=== PATIENT | female | born 1960 | race Caucasian/White ===

== ENCOUNTER 2021-01-04 12:56 | Emergency (ER) | payer MEDICAID, OTHER ==
[~2021-01-04] VITALS: Ht 157.5 cm; Wt 137.0 kg
[~2021-01-04 12:56] MED LIST: IBUP-2030; SIMV40TA2
[2021-01-04] MEDS ORDERED: ONDANSETRON HCL 4MG/2ML INJ IV STA (13:18)
[2021-01-04] MEDS ORDERED: ACETAMINOPHEN 325MG TABLET PO STA (13:18)
[2021-01-04] MEDS ORDERED: KETOROLAC 30MG/ML VIAL IV STA (13:18)
[2021-01-04] MEDS ORDERED: SODIUM CHLORIDE 0.9% 1,000 ML IV ONE (13:30)
[2021-01-04 14:37] LABS: BASOPHILS % 0.5 % (0.0-2.0); HEMATOCRIT. 32.9 % (36.0-48.0); HEMOGLOBIN. 10.5 g/dL (12.0-16.0); MEAN CORPUSCULAR HEMOGLOBIN 25.7 pg (28.0-32.0); MEAN CORPUSCULAR VOLUME 80.5 fL (81.0-99.0); MEAN PLATELET VOLUME 9.4 fl (7.4-10.4); NEUTROPHILS % 75.5 % (40.0-76.0); PLATELET 271 x1000/uL (130-400); RED BLOOD CELL COUNT 4.08 mill/uL (4.2-5.4); RED CELL DISTRIBUTION WIDTH 14.6 % (11.6-14.6)
[2021-01-04 14:39] LABS: CHLORIDE 99 mEq/L (98-107)
[2021-01-04 14:42] LABS: INR 1.1; PROTHROMBIN TIME 11.7 sec (9.6-11.0)
[2021-01-04 15:01] LABS: CLARITY URINE CLOUDY (CLEAR); COLOR URINE YELLOW (YELLOW); KETONES URINE NEGATIVE (NEGATIVE); LEUKOCYTE ESTERASE URINE 1+ (NEGATIVE); NITRITE URINE NEGATIVE (NEGATIVE); OCCULT BLOOD URINE NEGATIVE (NEGATIVE); PH URINE 5.5 (4.5-8.0); PROTEIN URINE TRACE (NEGATIVE); SPECIFIC GRAVITY URINE 1.019 (1.005-1.030); UROBILINOGEN URINE 0.2 E.U./dL (0.2-1.0)
[2021-01-04] MEDS ORDERED: LEVOFLOXACIN 750MG PREMIX 150 ML IV ONE (15:15)
[2021-01-04] MEDS ORDERED: LEVO750T46 PO (15:49)
[2021-01-04] MEDS ORDERED: TOPUD PO (15:49)
[2021-01-04 17:41] VITALS: BP 128/81
== END 2021-01-04 17:41 | disposition home or self-care (01) ==
LOC: ER 12:56
DX: N39.0 Urinary tract infection, site not specified (principal); R19.7 Diarrhea, unspecified; M79.18 Myalgia, other site; R06.02 Shortness of breath; R11.0 Nausea; R51.9 Headache, unspecified; I51.7 Cardiomegaly
CPT/HCPCS: 36415; 71045; 80053; 81003; 83605; 84145; 84484; 85025; 85610; 87040; 87086; 93005; 96361; 96365; 96375; 99285; J1885; J1956; J2405; J7030; Z7610

== ENCOUNTER 2022-06-01 17:10 | Emergency (ER) | payer MEDICAID ==
[~2022-06-01] VITALS: Ht 154.9 cm; Wt 146.0 kg
[~2022-06-01 17:10] MED LIST changes: +LEVO750T46 PO; +TOPUD PO
[2022-06-01 17:16] VITALS: BP 163/100
== END 2022-06-01 20:23 | disposition left against medical advice (07) ==
LOC: ER 17:10
DX: Z53.21 Procedure and treatment not carried out due to patient leaving prior to being seen by health care provider (principal)